=== PATIENT | female | born 1995 | race Caucasian/White ===

== ENCOUNTER 2017-04-24 17:09 | Emergency (ER) | payer OTHER ==
--- NOTE | 2017-04-24 18:41 | CPEKG ---
Heart Rate: 82 RR Interval: 732 P-R Interval: 104 QRSD Interval: 86 QT Interval: 372 QTC Interval: 435 P Ames: 39 QRS Ames: 76 T Wave Ames: 13 EKG Severity - BORDERLINE ECG - EKG Impression: SINUS RHYTHM EKG Impression: SHORT [place] INTERVAL, ACCELERATED AV CONDUCTION Electronically Signed By: Bon Ordonez 24-Apr-2017 22:47:51
--- NOTE | 2017-04-24 18:56 | EDPHY ---
H & P Time Seen by Provider: 04/24/17 18:14 HPI/ROS: HPI Fall, head injury. 22-year-old female by private vehicle. This patient reports that last night she was walking home. She was near her apartment complex. There was a manhole the had the cover off of it. She fell into the manhole waist deep. She hit the back of her head on the edge of the manhole and she fell and. She did not have any loss of consciousness at that time. She reports that she did have a mild headache. She also reports that she twisted her right ankle and jammed her left thumb. She reports that last night she got up to go to the bathroom. While walking to the bathroom she developed lightheadedness and had a fainting episode. She states that she fell backwards and hit the back of her head again. No associated palpitations. She denies any neck pain. No loss of sensation or weakness in her extremities. She reports that when she woke up this morning she had a dull posterior headache. She also complains of continued swelling and pain to her left thumb and right ankle. ROS: Constitutional: No fever, no chills. No weakness. Eyes: No discharge. No changes in vision. ENT: No sore throat. No nasal congestion or rhinorrhea. Respiratory: No cough. No shortness of breath. Cardiac: No chest pain, no palpitations. Gastrointestinal: No abdominal pain, no vomiting, no diarrhea. Genitourinary: No hematuria. No dysuria or increased frequency with urination. Musculoskeletal: No back pain. No neck pain. As above. Skin: No rashes. Neurological: As above. No focal weakness or altered sensation. Past medical history: She denies any significant past medical history. Social history: [employer]. No alcohol. No smoking. Physical Exam: General Appearance: Alert, no distress. This patient is responding to questions appropriately and in full sentences. This patient appears well- hydrated and well-nourished. Head: Normocephalic atraumatic except for a small right-sided posterior parietal scalp contusion. No scalp laceration. No bony step-off or deformity noted on palpation over this area. Face: Facial bones are stable on palpation. Eyes: Pupils equal and round and reactive to light, no pallor or injection. No lid erythema or edema. ENT, Mouth: Mucous membranes moist. Dentition is intact. No malocclusion of the jaw. No tongue lacerations or abrasions. Pharynx is clear. The bilateral nasal canals are clear. No septal hematoma. No evidence of hemotympanum. Respiratory: There are no retractions, lungs are clear to auscultation with good air movement bilaterally. Chest wall is stable to AP and lateral palpation. Cardiovascular: Regular rate and rhythm. No murmur. Gastrointestinal: Abdomen is soft and nontender, no masses, bowel sounds normal. Neurological: Motor sensory function is intact. Cranial nerves are normal. Cerebellar function intact. Skin: Warm and dry, no rashes. No lacerations, abrasions or contusions. Musculoskeletal: Neck is supple and nontender. The trachea is midline. No midline cervical, thoracic, lumbar or sacral tenderness on palpation. No flank tenderness on palpation. Right ankle exam: She has some mild swelling over the lateral malleolus with tenderness on palpation over this. No bony deformity or step-off noted on palpation over this area. The right foot is neurovascularly intact. She states that she is able to bear weight on the right foot and ankle. Examination of the left thumb significant for tenderness on palpation with associated ecchymosis, ventral aspect at the base of the thumb going proximal from the metacarpal phalangeal joint. No snuffbox tenderness on palpation. No carpal tenderness on axial compression of the thumb. Extremities are symmetrical, full range of motion other than noted. All joints in the bilateral upper and bilateral lower extremities range without pain or impingement other than noted. No tenderness on palpation of the long bones in the bilateral upper and bilateral lower extremities other than noted. Psychiatric: No agitation. No depression. Database: EKG: EKG time is 6:38 p.m.; EKG shows a narrow complex normal sinus rhythm with a ventricular rate of 82. The pre are interval a short at 1:04 a.m.. The QRS, QT intervals are within normal limits. There are no ST-T wave changes indicative of ischemic or injury pattern. No evidence of right heart strain. No evidence of WPW, hypertrophic cardiomyopathy, Brugada syndrome. Interpreted by me. Imaging: Right ankle x-ray series: Negative for fracture, subluxation, dislocation. Mild lateral ankle sprain. Interpreted by me. Left thumb x-ray series: Negative for fracture, subluxation, dislocation. Interpreted by me. CT scan of head without contrast: Normal. Results were discussed with staff radiologist Dr. Mario Kern. Procedures: Emergency department course: Patient's vital signs reviewed and are normal. EKG obtained and reviewed by myself. 8:10 p.m., patient re-evaluated. Resting comfortably at this time. Results of her x-rays discussed with her. Consideration of ulnar collateral ligament sprain of thumb discussed. She was placed in a Velcro thumb spica splint. She is able to bear weight on the right ankle without significant pain. She feels comfortable going home at this time. Head injury precautions were discussed with her. Follow-up with orthopedic hand specialist discussed. Return to emergency department precautions reviewed. All of her questions were answered. She was discharged in good condition. Differential Diagnosis: The differential diagnosis on this patient includes but is not limited to noncardiac syncope, right ankle sprain, left thumb sprain. Traumatic brain injury, skull fracture, cervical spine fracture, scaphoid fracture, other significant traumatic injury unlikely. This represents a partial list of diagnoses considered. These considerations are based on history, physical exam , past history, reassessment and diagnostic testing. Smoking Status: Never smoked Constitutional: Initial Vital Signs Temperature (C) 37 C 04/24/17 17:18 Heart Rate 92 04/24/17 17:18 Respiratory Rate 17 04/24/17 17:18 Blood Pressure 122/76 H 04/24/17 17:18 O2 Sat (%) 96 04/24/17 17:18 O2 Delivery Mode Room Air Allergies/Adverse Reactions: Cephalosporins Allergy (Verified 04/24/17 17:17) Home Medications: Medication Instructions Recorded Albuterol 04/24/17 Bcp's 04/24/17 Singulair 04/24/17 Departure - Departure Disposition: Home, Routine, Self-Care Clinical Impression: Syncope, Right ankle sprain, Left thumb sprain, Head injury Condition: Good Instructions: Ankle Sprain (ED), Skier's Thumb (ED), Head Injury (ED) Additional Instructions: Read and follow provided instructions. Follow-up with orthopedic hand specialist within the next 5-7 days for re- evaluation of your left thumb injury as discussed. Ibuprofen dosin mg every 6 hours with meals for the next 3 days only. Return to the emergency department for worsening symptoms, worsening headache, confusion, vomiting or other serious concerns. Referrals: NONE *PRIMARY CARE P,. [Primary Care Provider] - As per Instructions Ana Olivier MD [Medical Doctor] - As per Instructions Stand Alone Forms: Statement of Treatment
[2017-04-24 19:32] VITALS: BP 113/71; PULSE 79; RESP 16; TEMP 98.2; O2SAT 95
== END 2017-04-24 20:36 | disposition home or self-care (01) ==
DX: S09.90XA Unspecified injury of head, initial encounter (principal); S63.602A Unspecified sprain of left thumb, initial encounter; S93.401A Sprain of unspecified ligament of right ankle, initial encounter; R55 Syncope and collapse; W17.2XXA Fall into hole, initial encounter; Y92.009 Unspecified place in unspecified non-institutional (private) residence as the place of occurrence of the external cause; Y93.01 Activity, walking, marching and hiking
CPT/HCPCS: L3807

== ENCOUNTER → 2018-03-27 | Outpatient (CLI) | payer OTHER | LOC: BMCIMAGING 12:06 | PROVIDERS: ATTEND Emergency Medicine | DX: R05 Cough (principal); J45.909 Unspecified asthma, uncomplicated ==